=== PATIENT | female | born 1985 | race Two or more races ===

== ENCOUNTER 2019-10-24 00:27 | Emergency (ER) | payer MEDICAID, OTHER ==
[~2019-10-24] VITALS: Ht 157.5 cm; Wt 85.8 kg
[~2019-10-24 00:27] MED LIST: CALC600T2 PO; FOLI1TAB15 PO; PREN1TAB52 PO
[2019-10-24] MEDS ORDERED: IOVERSOL 350 MG/ML 100 ML VIAL ONE ×2 (00:51→01:59)
[2019-10-24] MEDS ORDERED: SODIUM CHLORIDE 0.9% 100 ML ONE (00:51)
[2019-10-24] MEDS ORDERED: PERTUSS(ACELL),DIPH,TET VAC/PF 0.5 ML VIAL IM ONE (01:00)
[2019-10-24] MEDS ORDERED: ONDANSETRON HCL 4 MG/2 ML VIAL IVP ONE ×2 (01:15→03:30)
[2019-10-24] MEDS ORDERED: MORPHINE SULFATE 4 MG/ML SYRINGE IVP ONE (01:15)
[2019-10-24 01:18] LABS: BASOPHILS % (AUTO) 0.5 % (0.0-2.0); EOSINOPHILS % (AUTO) 1.1 % (1.0-6.0); HEMATOCRIT 35.7 % (36-46); HEMOGLOBIN 11.8 g/dL (12.0-16.0); LYMPHOCYTES # (AUTO) 1.9 K/uL (1.0-4.8); LYMPHOCYTES % (AUTO) 19.7 % (22.0-44.0); MEAN CORPUSCULAR HEMOGLOBIN 25.9 pg (26.0-34.0); MEAN CORPUSCULAR VOLUME 78 fL (80-100); MONOCYTES # (AUTO) 0.5 K/uL (0.1-1.0); MONOCYTES % (AUTO) 4.9 % (2.0-9.0); NEUTROPHILS # (AUTO) 7.3 K/uL (1.8-7.7); NEUTROPHILS % (AUTO) 73.8 % (40.0-70.0); PLATELET COUNT (AUTO) 254 K/uL (150-450); RED BLOOD CELL COUNT(AUTO) 4.56 MIL/uL (4.00-5.20)
[2019-10-24 01:26] LABS: ANION GAP 12 mmol/L (8-16); CALCIUM, TOTAL 8.8 mg/dL (8.8-10.5); CARBON DIOXIDE 29 mmol/L (22-29); CHLORIDE 104 mmol/L (98-107); CREATININE 0.81 mg/dL (0.60-1.30); GLOMERULAR FILTR. RATE CALC > 60 mL/min (>60); GLUCOSE,RANDOM 83 mg/dL (70-110); POTASSIUM 3.3 mmol/L (3.5-5.1); SODIUM SERUM 145 mmol/L (136-145); UREA NITROGEN, BLOOD 12 mg/dL (7-18)
[2019-10-24 01:50] LABS: CREATINE KINASE, TOTAL ONLY 129 U/L (26-192); HCG,QUANTITATIVE < 1 mIU/mL (0-6)
[2019-10-24] MEDS ORDERED: MORPHINE SULFATE 10 MG/ML SYRINGE IVP ONE (03:30)
[2019-10-24] MEDS ORDERED: HYDROCODONE/ACETAMINOPHEN 5-325 MG TABLET PO ONE (04:00)
[2019-10-24 07:17] VITALS: BP 106/57
== END 2019-10-24 07:17 | disposition home or self-care (01) ==
LOC: EMS 00:27
DX: S00.93XA Contusion of unspecified part of head, initial encounter (principal); M54.9 Dorsalgia, unspecified; Y04.0XXA Assault by unarmed brawl or fight, initial encounter; Y93.89 Activity, other specified; Y92.89 Other specified places as the place of occurrence of the external cause; Y99.8 Other external cause status
CPT/HCPCS: 36415; 70450; 70487; 71260; 72125; 74177; 80048; 82550; 84702; 85025; 90471; 90715; 96374; 96375; 99285; G0480; J2270 ×2; J2405; J7050; Q9967; 72193; 74160